=== PATIENT | female | born 1955 | race Caucasian/White ===

== ENCOUNTER → 2017-07-11 15:03 | Outpatient (POV) | payer MEDICARE, MEDICAID, SELFPAY | PROVIDERS: PCP Nurse Practitioner Family; Visit Provider Internal Medicine Nephrology | DX: Z00.00 Encounter for general adult medical examination without abnormal findings (principal) ==

== ENCOUNTER → 2020-02-18 11:01 | Outpatient (POV) | payer MEDICARE, MEDICAID, SELFPAY | PROVIDERS: Visit Provider Internal Medicine Nephrology | DX: Z00.00 Encounter for general adult medical examination without abnormal findings (principal) ==

== ENCOUNTER → 2020-12-01 13:16 | Outpatient (POV) | payer MEDICARE, MEDICAID, SELFPAY | PROVIDERS: Visit Provider Internal Medicine Nephrology | DX: Z00.00 Encounter for general adult medical examination without abnormal findings (principal) ==

== ENCOUNTER → 2022-06-24 08:38 | Outpatient (CLI) | payer MEDICARE, MEDICAID, SELFPAY ==
[2022-06-24 08:54] LABS: Microscopic, Urine URINE MICROSCOPIC (MICROSCOPIC)
[2022-06-24 09:33] LABS: Basophils # 0.1 K/mm3 (0-0.2); Basophils % 0.7 % (0.1-2.0); Eosinophils # 0.4 K/mm3 (0.0-0.4); Hematocrit 43.9 % (37.0-47.0); Hemoglobin 14.2 g/dL (12.2-16.2); Lymphocytes % 21.2 % (10-50); Mean Corpuscular HGB Conc 32.4 g/dL (31.8-35.4); Mean Corpuscular Hemoglobin 31.7 pg (27.0-31.2); Mean Corpuscular Volume 97.9 fl (81-99); Mean Platelet Volume 7.9 fl (7.4-10.4); Monocytes # 0.4 K/mm3 (0.1-1.0); Monocytes % 4.3 % (1.7-9.3); Neutrophils # 6.6 K/mm3 (1.8-7.8); Neutrophils % 69.7 % (37.0-80.0); Platelet Count 266 K/mm3 (142-424); Red Blood Count 4.49 M/mm3 (4.20-5.40); Red Cell Distribution Width 13.3 % (11.5-17.5); White Blood Count 9.4 K/mm3 (4.8-10.8)
[2022-06-24 09:47] LABS: Albumin Level 4.3 g/dl (3.5-5.0); Anion Gap 6.8 mEq/L (5-15); Blood Urea Nitrogen 7 mg/dl (7-17); Calcium 8.9 mg/dl (8.4-10.2); Carbon Dioxide 32 mmol/L (22.0-30.0); Chloride 104 mmol/L (98-107); Estimated Glomerular Filt Rate 83 ml/min (>60); GFR (African American) 101 ML/MIN (>60); Glucose 60 mg/dl (74-100); Phosphorous 3.6 mg/dl (2.5-4.5); Potassium 3.8 mmoL/L (3.5-5.1); Sodium 139 mmol/L (136-145)
[2022-06-24 10:28] LABS: Appearance,Urine CLEAR (Clear); Bilirubin,Urine Negative (Negative); Blood, Urine Negative (Negative); Color,Urine YELLOW (Yellow); Glucose,Urine (UA) Negative (Negative); Ketones,Urine Negative (Negative); Leukocyte Esterase,Urine Negative (Negative); Nitrate,Urine Negative (Negative); Protein,Urine Negative (Negative); Specific Gravity, Urine <= 1.005 (1.005-1.030); Urobilinogen,Urine 0.2 EU/dl (0.2)
[2022-06-24 10:42] LABS: Microalbumin/Creatinine Ratio 125.6
[2022-06-24 10:44] LABS: Creatinine,Urine Random 30 mg/dL (Not Estab.)
== END ==
PROVIDERS: Visit Provider Nurse Practitioner
DX: N18.30 Chronic kidney disease, stage 3 unspecified (principal)
CPT/HCPCS: 36415; 80069; 81001; 82043; 82570; 84155; 85025

== ENCOUNTER → 2022-06-28 13:08 | Outpatient (POV) | payer MEDICARE, MEDICAID, SELFPAY | PROVIDERS: Visit Provider Nurse Practitioner | DX: Z00.00 Encounter for general adult medical examination without abnormal findings (principal) ==

== ENCOUNTER 2023-10-12 07:38 | Day surgery (SDC) | payer MEDICARE, MEDICAID, SELFPAY ==
[2023-10-10 11:16] VITALS: BMI 29.0
[2023-10-12] MEDS: LACTATED RINGERS 1000ML 1,000 ML 25 ML IV (07:58)
[2023-10-12 08:12] VITALS: BP 136/52; PULSE 75; RESP 18; TEMP 36.4; O2SAT 95
--- NOTE | 2023-10-12 08:28 | P.PNANES_ITS ---
[facility] Disclaimer: The information contained in this section may have been updated after the patient was seen, as this information can be updated by other users. Medical History Anxiety HLD (hyperlipidemia) HTN (hypertension) Diabetes Encounter for screening colonoscopy Surgical History History of knee replacement Family History Sister Cancer Social History Smoking Status: Former smoker how long ago did patient quit smokin second hand exposure: No alcohol intake: never substance use type: denies use current occupational status: retired Travel in the last 8 weeks: None housing: house number of children: 0 caffeine: Yes do you feel safe at home: Yes victim of physical abuse: No victim of emotional abuse: No victim of sexual abuse: No would you like helpful sources: No [facility] Anesthesia Checklist Patient Identification Patient Identification: Arm Band and Verbal (Name & ) Structural Data Admitted From: Home Planned Operative Procedure/s: Colonoscopy Consent for Planned Operative Procedure(s) Verified: Yes Verified Documents: Surgical Consent and History and Physical NPO Status Verified Time NPO: 00:00 Additional verifications Anesthesia Reactions: No Airway Assessment Mallampati Score:: Class III C-Spine Mobility Assessed: Yes TMJ Mobility Assessed: Yes Dentition: Edentulous Neurological Assessment Level of Consciousness: Awake Hx Seizures: No Numbness or tingling in extremities: No Anesthesia Plan Anesthesia Risk discussed: Yes Anesthesia Plan: Verified ASA Class: II Anesthesia Type: MAC
[2023-10-12] MEDS: DEXTROSE 50% 50ML SYRINGE (CRASH CART) 25 ML IV (08:30)
[2023-10-12 08:32] LABS: POC Glucose,Bedside 52 (70-110)
[2023-10-12 08:57] VITALS: O2SAT 95
[2023-10-12 09:00] LABS: POC Glucose,Bedside 105 (70-110)
--- NOTE | 2023-10-12 09:24 | HMH.SCOPE ---
Procedure: Date: 10/12/23 Patient Date of :: 1955 Procedure Performed:: Colonoscopy Indications:: The patient is a 68-year-old who presents for screening colonoscopy Performing Provider:: Ken Joe MD Referring Provider:: Laura Morales APRN Sedation:: See RN records Procedure:: After placing the patient in the left lateral decubitus position, the colonoscopy was gently inserted into the rectum and under direct visualization advanced to the cecum which was identified by transillumination in the right lower quadrant, identification of the ileocecal valve, appendiceal orifice, and cecal strap. Color, texture, mucosa, and anatomy of the colon were carefully examined with the scope. Findings:: The quality of the bowel preparation was excellent. There was a small sessile polyp (4 to 6 mm) in size located in the transverse colon. The polyp was removed by cold snare polypectomy. Polyp was retrieved. There was a diminutive polyp in the descending colon. The polyp was removed with a cold forceps. The remaining colon appeared normal. Impression: Polyp of the transverse colon Polyp of the descending colon Recommendations:: Await pathology results Repeat colonoscopy in 5 years Complications:: None Estimated blood obtained (mL): 0 Colonoscopy Component Colonoscopy Component Was a colonoscopy performed during today's procedure?: Yes Recommended follow up colonoscopy of at least 10 years?: Yes
[2023-10-12 09:25] VITALS: BP 102/45; PULSE 63; RESP 16; TEMP 36.3; O2SAT 97
[2023-10-12 09:35] VITALS: BP 139/65; PULSE 66; RESP 16; O2SAT 97
[2023-10-12 09:38] LABS: POC Glucose,Bedside 90 (70-110)
[2023-10-12 09:45] VITALS: BP 134/72; PULSE 62; RESP 18; O2SAT 97
[2023-10-12 09:55] VITALS: BP 133/66; PULSE 68; RESP 16; O2SAT 97
== END 2023-10-12 09:58 | disposition home or self-care (01) ==
PROVIDERS: PCP Family Medicine; Visit Provider Internal Medicine
PROC: (CPT 45380; principal; 2023-10-12 09:00)
DX: Z12.11 Encounter for screening for malignant neoplasm of colon (principal); K63.5 Polyp of colon; D12.3 Benign neoplasm of transverse colon; E11.8 Type 2 diabetes mellitus with unspecified complications
CPT/HCPCS: 45380; 45385; 82962; 88305; J7120